=== PATIENT | female | born 1975 ===

== ENCOUNTER 2021-05-23 14:25 | Emergency (ER) | payer MEDICAID ==
[~2021-05-23] VITALS: Ht 175.3 cm; Wt 91.6 kg
[2021-05-23] MEDS ORDERED: SODIUM CHLORIDE 0.9% 1,000 ML IV ONE (16:30)
[2021-05-23 18:15] LABS: Hemoglobin 11.3 g/dL (12.2-16.2)
[2021-05-23 18:18] LABS: Mean Corpuscular Hemoglobin 20.2 pg (28.0-32.0); Mean Corpuscular Hgb Conc. 30.5 g/dL (32.0-36.0); Mean Corpuscular Volume 66.2 fL (80.0-100.0); Red Blood Cells 5.59 10^6/uL (4.0-5.20); Red Cell Distribution Width 21.1 % (11.8-14.3); White Blood Cell 3.8 10^3/uL (4.4-10.8)
[2021-05-23 18:19] LABS: Band Neutrophils % (manual) 0; Basophils % (manual) 0 (0.0-2.0); Blast Cells 0; Metamyelocytes % 0; Myelocytes % 0; Promyelocytes % 0; Reactive Lymphocytes 0
[2021-05-23 18:31] LABS: Albumin 3.6 g/dL (3.4-5.0); Calcium 10.1 mg/dL (8.5-10.1); Potassium 3.8 mmol/L (3.5-5.1)
[2021-05-23 18:34] LABS: BUN/Creatinine Ratio 12.5; Bilirubin, Total 0.8 mg/dL (0.2-1.0); INR 0.99 (0.9-1.15); Partial Thromboplastin Time 24.6 sec (23.6-33.0); Total Protein 7.8 g/dL (6.4-8.2)
[2021-05-23 19:17] LABS: Eosinophils % (manual) 1 (0-7); Lymphocytes % (manual) 40 (10.0-50.0); Monocytes % (manual) 6 (0-12)
[2021-05-23 21:23] VITALS: BP 160/88
== END 2021-05-24 00:06 | disposition home or self-care (01) ==
LOC: ER 14:25
DX: R00.0 Tachycardia, unspecified (principal); R06.02 Shortness of breath; E11.9 Type 2 diabetes mellitus without complications; E78.5 Hyperlipidemia, unspecified; Z86.73 Personal history of transient ischemic attack (TIA), and cerebral infarction without residual deficits; Z20.822 Contact with and (suspected) exposure to COVID-19
CPT/HCPCS: 36415; 71045; 80053; 85007; 85027; 85610; 85730; 86850; 86900; 86901; 87426; 93005